=== PATIENT | female | born 1995 | race African-American/Black ===

== ENCOUNTER 2016-12-29 00:23 | Emergency (ER) | payer OTHER ==
[~2016-12-29] VITALS: Ht 160 cm; Wt 57.0 kg
[2016-12-29 00:25] VITALS: BP 119/65; PULSE 128; RESP 18; TEMP 99.8; O2SAT 99
[2016-12-29] MEDS ORDERED: LIDOCAINE HCL 1% PF 30 ML VIAL INFIL ONE (01:15)
[2016-12-29] MEDS ORDERED: ONDANSETRON ODT 4 MG TAB PO ONE (01:15)
[2016-12-29] MEDS ORDERED: BUPIVACAINE HCL PF 0.5% 10 ML VIAL INFIL ONE (01:15)
[2016-12-29] MEDS ORDERED: ACETAMINOPHEN/HYDROcodone 325 MG/5 MG TAB PO ONE (01:15)
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
[2016-12-29] MEDS ORDERED: CEPH-460 PO (01:48)
[2016-12-29] MEDS ORDERED: CEPHALEXIN MONOHYDRATE 500 MG CAP PO ONE (02:00)
== END 2016-12-29 02:43 | disposition home or self-care (01) ==
LOC: NEPK 00:23
DX: S91.312A Laceration without foreign body, left foot, initial encounter (principal); W45.8XXA Other foreign body or object entering through skin, initial encounter
CPT/HCPCS: 12001; 73630

== ENCOUNTER 2017-01-08 12:56 | Emergency (ER) | payer OTHER ==
[~2017-01-08] VITALS: Ht 160 cm; Wt 60.0 kg
[~2017-01-08 12:56] MED LIST: CEPH-460 PO
[2017-01-08 13:00] VITALS: BP 111/75; PULSE 99; RESP 14; TEMP 98.2; O2SAT 98
--- NOTE | 2017-01-08 13:09 | PD ---
Physical Exam Date Seen by Provider: Jan 08, 2017 Time Seen by Provider: 13:08 Narrative Pt is a 21 year old female presenting for a wound check. Pt states she had stitches placed 10 days ago. Pt denies any complaints, VSS, awaiting bed placement. Data Data Last Documented VS Vital Signs Date Time Temp Pulse Resp B/P (MAP) Pulse Ox O2 Delivery O2 Flow Rate FiO2 01/08/17 13:00 98.2 99 14 111/75 (87) 98 MDM Supervised Visit with CHUY: Joi Mcclellan Jan 08, 2017 13:09
--- NOTE | 2017-01-08 13:41 | PD ---
HPI Chief Complaint: Wound/Suture/Staple Re-Check Time Seen by Provider: 13:40 Travel History International Travel<30 days: No Contact w/Intl Traveler<30days: No Traveled to known affect area: No History of Present Illness HPI 21-year-old female presents emergency department requesting wound recheck and suture removal from left third toe. Sutures in place for 10 days. She was given antibiotics and completed them. She denies drainage from the wound site. Denies paresthesias, loss of sensation to the toe. Denies fever, vomiting. Symptoms are mild in severity. Has no other medical complaints. No other movement factors or associated signs and symptoms. PFSH Past Medical History Immunizations Current: Yes ?: Not Social History Alcohol Use: Yes (socially) Tobacco Use: No Substance Use: No Allergies-Medications (Allergen,Severity, Reaction): Coded Allergies: ibuprofen (Verified Allergy, Severe, Anaphylaxis, 12/29/16) No Known Allergies (Verified Allergy, Unknown, 12/29/16) Reported Meds & Prescriptions Reported Meds & Active Scripts Active Keflex (Cephalexin) 500 Mg Cap 500 Mg PO Q8H 5 Days Review of Systems Except as stated in HPI: all other systems reviewed are Neg Physical Exam Narrative GENERAL: Well-nourished, well-developed black female patient, in no acute distress; afebrile, nontoxic-appearing SKIN: Warm and dry. Laceration to the bottom of the left third toe that is well approximated with sutures intact and without erythema, edema, drainage. No signs of infection. Toe with sensory intact and less than 3 second cap refill. HEAD: Atraumatic. Normocephalic. EYES: Pupils equal and round. No scleral icterus. No injection or drainage. ENT: Mucosa pink and moist. Airway patent. NECK: Trachea midline. CARDIOVASCULAR: Regular rate. RESPIRATORY: No accessory muscle use. GASTROINTESTINAL: Flat. MUSCULOSKELETAL: No obvious deformities. No clubbing. No cyanosis. No edema. NEUROLOGICAL: Awake and alert. Oriented 3. No obvious cranial nerve deficits. Motor grossly within normal limits. Normal speech. PSYCHIATRIC: Appropriate mood and affect; insight and judgment normal. Data Data Last Documented VS Vital Signs Date Time Temp Pulse Resp B/P (MAP) Pulse Ox O2 Delivery O2 Flow Rate FiO2 01/08/17 13:00 98.2 99 14 111/75 (87) 98 MDM Medical Decision Making Medical Screen Exam Complete: Yes Emergency Medical Condition: Yes Medical Record Reviewed: Yes Differential Diagnosis Suture removal, wound recheck, medical clearance Narrative Course 21-year-old female here for suture removal of left third toe. Sutures been in for 10 days. There are no signs of infection. Sutures removed. Patient tolerated well. Instructed patient to follow up with primary care provider. Patient verbalizes understanding and agreement with treatment plan. Patient is medically cleared and stable for discharge. Discussed reasons to return to the emergency department. Patient agrees with treatment plan. The patients vital signs are stable and the patient is stable for outpatient follow-up and treatment. Patient discharged home, stable and in no acute distress. Diagnosis Primary Impression: Encounter for removal of sutures Referrals: Primary Care Physician Patient Instructions: General Instructions, Stitches Removal (ED) Additional Instructions: Keep area clean and dry Bandage as needed for wound care Follow up with primary care provider Return to the emergency department immediately with worsening of symptoms Med/Other Pt SpecificInfo: No Meds Exist/No RX given Disposition: 01 DISCHARGE HOME Condition: Stable Sravanthi Johansen Jan 08, 2017 13:41
== END 2017-01-08 13:51 | disposition home or self-care (01) ==
LOC: NEPK 12:56
DX: S91.115D Laceration without foreign body of left lesser toe(s) without damage to nail, subsequent encounter (principal); Z48.02 Encounter for removal of sutures; X58.XXXD Exposure to other specified factors, subsequent encounter
CPT/HCPCS: 99281

== ENCOUNTER 2017-01-10 18:50 | Inpatient (IN) | payer OTHER ==
[~2017-01-10] VITALS: Ht 160 cm; Wt 71.0 kg
[2017-01-10 19:30] VITALS: BP 110/65; PULSE 70; RESP 20; TEMP 99.1
[2017-01-10] MEDS ORDERED: ONDANSETRON HCL 4 MG/2 ML VIAL IV PUSH ONE ×2 (19:30→21:45)
[2017-01-10] MEDS ORDERED: MORPHINE SULFATE 4 MG/ML INJ IV PUSH ONE ×2 (19:30→21:45)
[2017-01-10] MEDS ORDERED: LIDOCAINE HCL 1% 50 ML VIAL INFIL ONE (19:30)
[2017-01-10] MEDS ORDERED: ceFAZolin 2 GM PREMIX 50 ML IV ONE (19:30)
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
[2017-01-10] MEDS ORDERED: ONDANSETRON HCL 4 MG/2 ML VIAL IV PUSH PRN (22:00)
[2017-01-10] MEDS ORDERED: NALOXONE HCL 0.4 MG/ML AMP IV PRN (22:00)
[2017-01-10] MEDS ORDERED: SODIUM CHLORIDE 0.9% FLUSH 10 ML FLUSH IV FLUSH PRN (22:00)
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
[2017-01-10 22:57] LABS: AUTOMATED NEUTROPHIL # 11.6 TH/MM3 (1.8-7.7); BASOPHIL # 0.1 TH/MM3 (0-0.2); BASOPHIL % 0.5 % (0.0-2.0); EOSINOPHIL # 0.1 TH/MM3 (0-0.4); EOSINOPHIL % 0.4 % (0.0-4.0); HEMATOCRIT 39.4 % (35.0-46.0); HEMO FLAGS DIFF FINAL; LYMPHOCYTE # 1.6 TH/MM3 (1.0-4.8); MEAN CORPUSCULAR HEMOGLOBIN 25.5 PG (27.0-34.0); MEAN CORPUSCULAR HGB CONC 32.7 % (32.0-36.0); MONO % 8.8 % (0.0-8.0); NEUT % 79.3 % (16.0-70.0); PLATELET COUNT 292 TH/MM3 (150-450); RED BLOOD COUNT 5.06 MIL/MM3 (4.00-5.30); RED CELL DISTRIBUTION WIDTH 13.8 % (11.6-17.2); WHITE BLOOD COUNT 14.6 TH/MM3 (4.0-11.0)
[2017-01-10 23:11] VITALS: BP 114/62; PULSE 74; RESP 18; O2SAT 99
[2017-01-10 23:20] LABS: BICARBONATE 22.7 MEQ/L (21.0-32.0)
[2017-01-10 23:23] LABS: POTASSIUM 3.9 MEQ/L (3.5-5.1)
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
[2017-01-11] VITALS: BP 112/63; PULSE 121; RESP 16; TEMP 99.8; O2SAT 96
[2017-01-11] MEDS: MORPHINE SULFATE 4 MG/ML INJ IV PUSH PRN ×6 (00:08→22:17)
[2017-01-11] MEDS ORDERED: SODIUM CHLORID 0.9% 500 ML IV PRN (00:15)
[2017-01-11] MEDS ORDERED: CHLORHEXIDINE GLUCONATE 2 % 1 PACK (2 CLOTHS) TOPICAL PRN (00:15)
[2017-01-11] MEDS ORDERED: INSULIN HUMAN REGULAR 1,000 UNITS/10 ML VIAL SQ PRN (00:15)
[2017-01-11] MEDS ORDERED: LACTATED RINGER'S 1000 ML IV PRN (00:15)
[2017-01-11] MEDS ORDERED: POVIDONE IODINE 5% (ANTISEPSIS KIT) 4 APPLICATIONS EACH NARE PRN (00:15)
[2017-01-11 00:19] LABS: APTT (PATIENT) 26.1 SEC (24.3-30.1); INTERNATIONAL NORMALIZED RATIO 1.1 RATIO; PROTHROMBIN TIME - PATIENT 11.7 SEC (9.8-11.6)
[2017-01-11] MEDS: SODIUM CHLOR 0.9% 1000 ML INJ 1,000 ML IV SCH ×3 (01:19→17:48)
[2017-01-11 04:20] VITALS: BP 108/68; PULSE 118; RESP 16; TEMP 99.4; O2SAT 99
[2017-01-11 06:02] LABS: AUTOMATED NEUTROPHIL # 8.7 TH/MM3 (1.8-7.7); BASOPHIL % 0.2 % (0.0-2.0); EOSINOPHIL % 0.1 % (0.0-4.0); HEMO FLAGS DIFF FINAL; LYMPH % 15.8 % (9.0-44.0); LYMPHOCYTE # 1.9 TH/MM3 (1.0-4.8); MEAN CORPUSCULAR HEMOGLOBIN 26.3 PG (27.0-34.0); MEAN CORPUSCULAR HGB CONC 34.2 % (32.0-36.0); MONO % 13.1 % (0.0-8.0); NEUT % 70.8 % (16.0-70.0); PLATELET COUNT 224 TH/MM3 (150-450); RED BLOOD COUNT 4.28 MIL/MM3 (4.00-5.30); RED CELL DISTRIBUTION WIDTH 13.8 % (11.6-17.2); WHITE BLOOD COUNT 12.2 TH/MM3 (4.0-11.0)
[2017-01-11 06:34] LABS: BICARBONATE 23.6 MEQ/L (21.0-32.0); POTASSIUM 3.8 MEQ/L (3.5-5.1)
[2017-01-11] MEDS ORDERED: ceFAZolin 2 GM PREMIX 50 ML IV SCH (07:30)
[2017-01-11 07:47] VITALS: BP 112/59; PULSE 107; RESP 18; TEMP 98.9; O2SAT 99
[2017-01-11] MEDS ORDERED: SODIUM CHLORIDE 0.9% FLUSH 10 ML FLUSH IV FLUSH SCH (09:00)
[2017-01-11] MEDS ORDERED: GENTAMICIN SULFATE 80 MG/2 ML VIAL ONE (10:25)
[2017-01-11] MEDS ORDERED: ACETAMINOPHEN 1000 MG/100 ML 100 ML IV ONE (11:12)
[2017-01-11] MEDS ORDERED: FAMOTIDINE 20 MG/2 ML VIAL ONE (11:13)
[2017-01-11] MEDS ORDERED: HYDROmorphone HCL PF 2 MG/ML VIAL ONE (11:13)
[2017-01-11] MEDS ORDERED: MIDAZOLAM HCL 2 MG/2 ML VIAL ONE (11:13)
[2017-01-11] MEDS ORDERED: LACTATED RINGER'S 1000 ML INJ 1,000 ML IV ONE (12:00)
[2017-01-11] MEDS ORDERED: PROPOFOL 200 MG/20 ML AMP IV ONE (12:00)
[2017-01-11] MEDS ORDERED: ONDANSETRON HCL 4 MG/2 ML VIAL IV PUSH ONE (12:00)
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
[2017-01-11] MEDS ORDERED: PERC5TAB12 PO (13:10)
[2017-01-11] MEDS ORDERED: oxyCODONE/ACETAMINOPHEN 5 MG/325 MG TAB PO PRN (13:15)
[2017-01-11] MEDS ORDERED: ZOLPIDEM TARTRATE 5 MG TAB PO PRN (13:15)
[2017-01-11] MEDS ORDERED: LACTULOSE SYRUP 20 GM/30 ML CUP PO PRN (13:15)
[2017-01-11] MEDS ORDERED: PROMETHAZINE HCL 25 MG TAB PO PRN (13:15)
[2017-01-11] MEDS ORDERED: KETOROLAC TROMETHAMINE 30 MG/ML (IVP) VIAL IVP SCH (13:15)
[2017-01-11] MEDS ORDERED: Post-op Orders (for Pharmacy) MISC XX ONE (13:15)
[2017-01-11] MEDS ORDERED: SENNOSIDES 8.6 MG TAB PO PRN (13:15)
[2017-01-11] MEDS ORDERED: MAGNESIUM HYDROXIDE SUSP 30 ML CUP PO PRN (13:15)
[2017-01-11] MEDS ORDERED: SODIUM CHLORIDE 0.9% FLUSH 10 ML FLUSH IV FLUSH PRN (13:15)
[2017-01-11] MEDS ORDERED: MORPHINE SULFATE 8 MG/ML INJ IV PUSH PRN (13:15)
[2017-01-11] MEDS ORDERED: BISACODYL 10 MG SUPP RECTAL PRN (13:15)
[2017-01-11] MEDS ORDERED: *MEPERIDINE 25 MG INJ VIAL PERIprocedural Use ONLY ONE (13:34)
[2017-01-11] MEDS ORDERED: DO NOT ADM ANY ANTICOAGULANT DRUGS PRN (13:37)
[2017-01-11 15:41] VITALS: BP 108/62; PULSE 100; RESP 19; TEMP 97.2; O2SAT 99
[2017-01-11 16:46] VITALS: O2SAT 97
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
[2017-01-11 20:20] VITALS: BP 103/65; PULSE 107; RESP 16; TEMP 99; O2SAT 100
[2017-01-11] MEDS: VANCOMYCIN INJ 1,000 MG in SODIUM CHLOR 0.9% 250 ML INJ 250 ML IV SCH (20:20)
[2017-01-11] MEDS: DOCUSATE SODIUM 50 MG/SENNA 8.6 MG TAB PO SCH (20:27)
[2017-01-11] MEDS: SODIUM CHLORIDE 0.9% FLUSH 10 ML FLUSH IV FLUSH SCH (20:27)
[2017-01-12] VITALS (9 sets, daily range): BP systolic 96–118; BP diastolic 54–75; PULSE 84–110; RESP 16–20; TEMP 97.7–100.1; O2SAT 96–100
[2017-01-12] MEDS: ENOXAPARIN SODIUM 30 MG/0.3 ML SYRINGE SQ SCH ×2 (01:45→14:17)
[2017-01-12] MEDS: MORPHINE SULFATE 4 MG/ML INJ IV PUSH PRN (01:45)
[2017-01-12] MEDS: SODIUM CHLOR 0.9% 1000 ML INJ 1,000 ML IV SCH ×2 (03:48→13:48)
[2017-01-12] MEDS: oxyCODONE/ACETAMINOPHEN 5 MG/325 MG TAB PO PRN ×3 (05:19→16:08)
[2017-01-12] MEDS: SODIUM CHLORIDE 0.9% FLUSH 10 ML FLUSH IV FLUSH SCH (08:51)
[2017-01-12] MEDS: DOCUSATE SODIUM 50 MG/SENNA 8.6 MG TAB PO SCH (08:51)
[2017-01-12] MEDS: VANCOMYCIN INJ 1,000 MG in SODIUM CHLOR 0.9% 250 ML INJ 250 ML IV SCH (09:00)
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
--- NOTE | 2017-01-12 16:52 | HHI.DCPOC ---
Discharge Care Plan Additional Problems Ms. Benitez was treated under my care and is cleared to return to school on 01/22. Fredi Parrish MD Jan 12, 2017 16:52
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
[2017-01-12] MEDS ORDERED: APIX2.5T PO (18:15)
== END 2017-01-12 18:41 | disposition home or self-care (01) | DRG 489 ==
LOC: NEPD 18:50 → NEDA 21:50 → N06B 01-11
PROVIDERS: ADMIT Hospitalist; ATTEND Hospitalist
PROC: 0MDP0ZZ Extraction of Left Knee Bursa and Ligament, Open Approach (ICD-10-PCS; 2017-01-11)
PROC: 0SQD0ZZ Repair Left Knee Joint, Open Approach (ICD-10-PCS; principal; 2017-01-11 11:44)
DX: S72.422B Displaced fracture of lateral condyle of left femur, initial encounter for open fracture type I or II (principal); M54.6 Pain in thoracic spine; S82.52XA Displaced fracture of medial malleolus of left tibia, initial encounter for closed fracture; V49.50XA Passenger injured in collision with unspecified motor vehicles in traffic accident, initial encounter
CPT/HCPCS: 72072; 73564; 73610; 73700; 80048; 85025; 85610; 85730; 94150; 96365; 96375; 96376; J0131; J0690; J1170; J1580; J1650; J2175; J2250; J2270; J2405; J3370; J7030; J7050; J7120; L1830